=== PATIENT | female | born 1950 | race Caucasian/White ===

== ENCOUNTER 2018-09-07 13:21 | Inpatient (IN) | payer MEDICARE, BC ==
[2018-09-07 14:32] LABS: #Basophils 0.1 thou/uL (0.0-0.2); #Eosinphils 0.1 thou/uL (0.0-0.7); #Lymphocytes 2.6 thou/uL (1.20-3.40); #Monocytes 0.8 thou/uL (0.11-0.59); #Neutrophils 4.5 thou/uL (1.40-6.50); %Basophils 1.2 % (0.0-1.0); %Lymphocytes 32.2 % (21.0-51.0); %Monocytes 9.9 % (0.0-10.0); %Neutrophils 55.7 % (42.0-75.0); Hemoglobin 11.7 g/dL (12.0-16.0); Mean Corpuscular Hemoglobin 25.3 pg (27.0-31.0); Mean Corpuscular Volume 76.7 fL (78.0-98.0); Mean Platelet Volume 5.9 fL (7.4-10.4); Platelet Count 573 thou/uL (130-400); RBC Distribution Width 16.3 % (11.5-14.5); Red Blood Cell (RBC) Count 4.63 mill/uL (4.20-5.40); White Blood Cell (WBC) Count 8.1 thou/uL (4.8-10.8)
[2018-09-07 14:46] LABS: ALT (SGPT) 20 U/L (8-55); AST (SGOT) 18 U/L (5-34); Albumin 4.1 g/dL (3.4-4.8); Alkaline Phosphatase 47 U/L (40-150); Anion Gap 15 mmol/L (10-20); BUN (Urea Nitrogen) 21 mg/dL (9.8-20.1); Bilirubin, Total 0.3 mg/dL (0.2-1.2); Calc. Creatinine Clearance 0 mL/min (70-130); Carbon Dioxide 25 mmol/L (23-31); Chloride 101 mmol/L (98-107); Estimated GFR-MDRD 51; Glucose 72 mg/dL (80-115); Potassium 3.4 mmol/L (3.5-5.1); Protein, Total 7.1 g/dL (6.0-8.3); Sodium 138 mmol/L (136-145)
[2018-09-07 14:50] LABS: CKMB 0.9 ng/mL (0-6.6)
[2018-09-07 15:04] LABS: PTT 27.4 SEC (22.9-36.1); Prothrombin Time 13.7 SEC (12.0-14.7)
[2018-09-07] MEDS ORDERED: Morphine 4 MG/ML VIAL ONE (15:06)
[2018-09-07 15:15] LABS: Bilirubin Negative (Negative); Blood, Urine Negative (Negative); Clarity CLEAR (Clear); Glucose, Urine (Dipstick) Negative (Negative); Leukocyte Negative (Negative); Nitrite Negative (Negative); Protein, Urine (Dipstick) Negative (Neg-Trace); Specific Gravity, Urine 1.013 (1.002-1.036); Urobilinogen 0.2 mg/dL (0.2-1.0)
--- NOTE | 2018-09-07 16:03 | RAD ---
RADIOGRAPH CHEST 1 VIEW: 09/07/18 HISTORY: 68-year-old female with multiple falls, acute chest trauma from fall. FINDINGS: There are no air space densities, pulmonary edema, pneumothorax, or cardiomegaly. The lateral costop hrenic angles are sharp. IMPRESSION: No acute cardiopulmonary findings. scout [] POS: [facility]
--- NOTE | 2018-09-07 16:10 | CT ---
CT CERVICAL SPINE NONCONTRAST: 09/07/18 HISTORY: 68-year-old female status post acute cervical trauma. FINDINGS: There are no jumped or perched facets. There is no evidence of acute fracture. The vertebral body h eights are maintained. There is no prevertebral soft tissue swelling. IMPRESSION: No evidence of acute fracture or acute traumatic subluxation. scout [] POS: [place]
--- NOTE | 2018-09-07 16:23 | CT ---
CT THORACIC SPINE NONCONTRAST: 09/07/18 HISTORY: 68-year-old female with acute traumatic thoracic spine pain due to fall. FINDINGS: No vertebral body collapse. Multiple Schmorl's nodes throughout almost all levels in the mid and lowe r thoracic spine. No hematoma in the perivertebral space. IMPRESSION: 1. No compression fracture. 2. Multilevel moderate degenerative disc disease in the mid and lower thoracic spine. POS: [facility]
[2018-09-07] MEDS ORDERED: Dextrose 5% in Water 1,000 ML IV PRN (16:32)
[2018-09-07] MEDS ORDERED: Ondansetron ODT 4 MG TAB PO PRN (16:32)
[2018-09-07] MEDS ORDERED: Dextrose 50% Abboject 50 ML SYRINGE SLOW IVP PRN (16:32)
[2018-09-07] MEDS ORDERED: Ondansetron PF 4 MG/2 ML Vial IVP PRN (16:32)
[2018-09-07] MEDS ORDERED: hydrALAZINE 20 MG/ML VIAL SLOW IVP PRN ×2 (16:32→16:45)
[2018-09-07] MEDS ORDERED: Insulin Regular 300 UNITS/3 ML VIAL SC PRN (16:32)
--- NOTE | 2018-09-07 17:15 | CT ---
CT BRAIN NONCONTRAST: DATE: 09/07/18 at 2:32 p.m. HISTORY: 68-year-old female status post acute head trauma from fall. Dr. Araujo reported the subdural hematoma by telephone to Dr. Torres at 2:56 p.m. on 09/07/18. COMPARISON: None. FINDINGS: There is a small volume of acute subdural hematoma at midline, broadly abutting the left side of the anterior interhemispheric falx. There are small amounts of hemorrhage in the adjacent left parasagitt al frontal lobe abutting this subdural hematoma, either a small amount of petechial cortical parenchy mal hemorrhagic contusions, subarachnoid blood, or combination of both. This is probably a small amou nt of subarachnoid blood. There are at least moderate chronic ischemic white matter changes in the ce rebrum. No obstructive hydrocephalus, mass effect, midline shift, or calvarial fracture. IMPRESSION: 1. Acute, small midline subdural hematoma along the left side of the anterior interhemispheric f howard, and a small amount of hemorrhage, probably subarachnoid, to the adjacent left. 2. No mass effect. 3. Advanced chronic ischemic white matter changes due to microvascular atherosclerosis. ADRIANA Eli POS: [facility]
--- NOTE | 2018-09-07 17:37 | CT ---
CT LUMBAR SPINE NONCONTRAST: 09/07/18 HISTORY: 68-year-old female with acute, trauma, low back pain due to fall. FINDINGS: For the purposes of this report, the level with hypoplastic bilateral ribs will be designated as T12. There is anterior wedge compression deformity of L3 vertebral body with approximately 20 to 35% maxi mum loss of height anteriorly. No fracture lucency is visualized associated with this, and there is n o edema in the prevertebral space. Therefore, this is probably chronic. There is moderate central spi nal canal stenosis at L4-5 due to diffuse disc bulge, and possible nerve root impingement of bilatera l L5 nerve roots at that level. The rest of the lumbar vertebral body heights are preserved. There is a 0.7 cm calcified meningioma or osteoma at the left posterior aspect of the spinal canal at the L2 level. At L3-4, there is a prominent diffuse disc bulge plus superimposed inferiorly migrated central disc herniation. There is ligamentum flavum thickening at that level. There is severe central spinal canal stenosis and very severe thecal sac stenosis at that level, as a result of all of these factor s. IMPRESSION: 1. Mild compression fracture deformity of L3, probably old. 2. No definite acute compression fracture identified. 3. Severe central spinal canal stenosis at L3-4. 4. Moderate central spinal canal stenosis. POS: [place]
[2018-09-07] MEDS ORDERED: Potassium Chloride 40 MEQ in Sodium Chloride 0.9% 250 ML 250 ML IVPB SCH (18:00)
[2018-09-07] MEDS ORDERED: Acetaminophen 500 MG TAB ONE (18:39)
--- NOTE | 2018-09-07 18:46 | HP ---
ATTENDING SURGEON: Dr. Barrientos. HISTORY OF PRESENT ILLNESS: This is a 68-year-old female, who presented to the emergency room today status post fall yesterday morning around 8:00. The patient was walking with her sister whenever she stepped down off a step and fell. The sister states that she witnessed her falling. She fell backward, hit the back of her head. Denies any loss of consciousness. The patient has had multiple falls recently, one about a week ago, which she reports right-sided rib pain. The patient also had a fall approximately four months ago with reported loss of consciousness and lost control of her bowels at that time. She was also worked up at [facility] at that time, and it was felt that she possibly came hypotensive. The patient reports several home medications for depression and anxiety. The patient does not have a list currently and was able to give a few of the medications. The patient denies being lightheaded or dizzy before the fall. The sister did state whenever she helped her off the ground, she noticed that she was lifting to one side. States the patient has been under significant stress as another sister has been in the hospital, undergoing surgery. The patient did not sleep the night before. After falling and hitting her head, she was extremely sleepy, but denied any nausea or vomiting. Family member insisted that the patient to be taken to the emergency room to be evaluated due to the multiple falls. PAST MEDICAL HISTORY: Myocardial infarction 2 years ago with stent placement, hypertension, type 2 diabetes, depression, anxiety, COPD. SURGICAL HISTORY: Cardiac stent, carotid surgery. PSYCHIATRIC HISTORY: Includes depression and anxiety. SOCIAL HISTORY: Includes smokes half pack a day, the patient states she has cut down, used to smoke 1 to 2 packs for 40 years. Denies any drug use, denies any alcohol use, lives at home alone in a [id number] suite. MEDICATIONS: 1. Trazodone 100 mg. 2. Metformin 1000 mg. 3. Klonopin 0.5 mg. 4. Fenofibrate 150 mg. 5. Effexor 100 mg. 6. Symbicort. 7. Plavix, unknown dose. The patient takes for stent placement. ALLERGIES: SULFA. REVIEW OF SYSTEMS: GENERAL: No weight changes. Denies any fever or chills. Does report feeling tired. HEENT: Pain to the back of the head. Reports small hematoma. Denies any neck pain. Denies any nausea, vomiting, or visual changes. Denies any hearing loss or vertigo, although the patient did have a pressure in her ear yesterday that lasted about 15 minutes. Denies any sore throat. CARDIAC: Reports history of hypertension. Denies dyspnea on exertion. Denies orthopnea. Denies edema. Denies palpitations. The patient does complain of some right rib pain from fall one week ago. RESPIRATORY: Denies any shortness of breath. Reports productive cough. Reports history of COPD. GI: Denies nausea, vomiting, or diarrhea, does report constipation this morning. Denies any urinary frequency or dysuria. Denies abdominal pain. Does complain of some tenderness to the right hip area. MUSCULOSKELETAL: Denies any muscle weakness. Denies stiffness of the joints. Denies swelling. NEUROLOGIC: Denies loss of sensation. Denies numbness or tingling. PHYSICAL EXAMINATION: GENERAL: The patient is awake, alert, answering questions appropriately. GCS 15. VITAL SIGNS: Blood pressure 160/86, respirations 20, pulse 93, temperature 99.6, and 94% on room air. SKIN: There is no bruising noted. No clubbing noted. No rashes. HEENT: Head is atraumatic and normocephalic. Eyes, pupils are equal and slightly sluggish at 4 mm bilateral, there are no extraocular movements. Tympanic membranes are normal. Trachea is midline. The patient with full range of motion. HEART: Regular rate and rhythm. No murmurs or rubs. No pedal edema. RESPIRATORY: Chest is symmetrical with equal respirations, unlabored. The patient does have some expiratory wheezing. ABDOMEN: Soft, nontender, nondistended. Positive active bowel sounds. MUSCULOSKELETAL: Normal range of motion to all extremities. Positive distal pulses to all extremities. Mild tenderness to palpation to the left hip. No bruising noted. No shortening. Again, full range of motion. The patient is ambulatory. NEUROLOGIC: Cranial nerves are intact. Positive sensation and strength. Motor strength 5/5 in all extremities. LABORATORY DATA: WBC 8100, RBC 4.63, hemoglobin 11.7, hematocrit 35.5, platelets 575. PT 13.7, INR 1.0, APTT 27.4. Sodium 138, potassium 3.4, chloride 101, BUN 21, creatinine 1.06, estimated GFR 51, glucose 72, calcium 10.0, AST 13, ALT 20, alkaline phosphatase 47. CK-MB 0.9, troponin less than 0.010. Albumin 4.1, globulin 3.0, ratio 1.4. Urine is yellow, clear, negative for protein, negative for glucose, negative for ketones, negative for blood, negative for nitrites, negative for leukocyte esterase. DIAGNOSTICS: 1. CT brain, acute small subdural hematoma along the left side of the anterior interhemispheric falx. Small amount of hemorrhage, probably subarachnoid in the adjacent left frontal lobe. No mass effect. Advanced chronic ischemic white matter changes due to microvascular arthrosclerosis. 2. Chest x-ray, no acute cardiopulmonary findings. 3. Cervical spine CT, no evidence of acute fracture or acute traumatic subluxation. 4. Thoracic spine CT, no compression fracture. Multilevel moderate degenerative disk disease in the mid and lower thoracic spine. 5. Lumbar CT-spine, pending. 6. EKG interpretation, normal sinus rhythm at [address] elevation or T-wave abnormality and normal axis, Q-waves noted in leads III, V1, V2 and V3. IMPRESSION: 1. Ground level fall. 2. Acute small subdural hematoma. 3. Chest wall contusion. PLAN: We will admit the patient to [facility] with frequent neuro checks. Neurosurgery has been consulted and evaluated. We will place the patient on a diabetic diet. We will hold the patient's Plavix. We will order scheduled q.4 hour nebs. We will encourage incentive spirometer use. We will ensure the patient's head of bed is elevated at [address] the patient on a bowel regimen. The patient has been discussed with the attending surgeon. Job ID: [id number]
[2018-09-07 19:05] LABS: Magnesium 1.5 mg/dL (1.6-2.6); Phosphorus 3.5 mg/dL (2.3-4.7)
[2018-09-07] MEDS ORDERED: traMADol HCl 50 MG TAB ONE (19:32)
--- NOTE | 2018-09-07 20:40 | CON ---
DATE OF CONSULTATION: ATTENDING PHYSICIAN: Jonnathan Warner MD HISTORY OF PRESENT ILLNESS: The patient is a 68-year-old female with a past medical history of diabetes and hypertension, who presented to the emergency department after a mechanical fall. The patient reports she has had multiple falls over the past few months. Her most recent fall was yesterday when she believes she stepped off a curve. She does not believe that she had any LOC, but has some difficulty remembering the events. Family reports that just prior to the event, the patient had been sleeping in a chair while she was waiting for her sister, who has recently had surgery here for cervical myelopathy. Family reports that when she woke and got up of the chair, she seems somewhat off-balance and not acting herself. They did not witness the fall. The patient reports since the fall yesterday, she had some increased headache. Denies any nausea, vomiting, or dizziness. She was evaluated with CT of head on arrival and found to have a small left-sided parafalcine subdural hematoma, and also small amount of left-sided traumatic parasagittal subarachnoid hemorrhage. There is no mass effect or midline shift. The patient has a GCS of 15, neurologically intact. She is not taking any anticoagulants, and her PT and INR are normal here. PAST MEDICAL HISTORY: Hypertension and diabetes. PAST SURGICAL HISTORY: Coronary artery disease with 1 prior stent, prior neck surgery, but no history of fusion. SOCIAL HISTORY: The patient does not smoke, drink, or use any drugs. ALLERGIES: SHE IS ALLERGIC TO SULFA. REVIEW OF SYSTEMS: Per HPI. PHYSICAL EXAMINATION: VITAL SIGNS: Blood pressure is 160/86, respiration rate is 20, heart oxygen is 94% on room air, pulse is 93, and temperature is 99.6. CONSTITUTIONAL: Awake and alert, in no acute distress. GCS 15. HEENT: Head; she has a small area of soft tissue swelling over the mid occiput. Eyes; PERRLA. Extraocular movements intact. ENT, oral mucosa is pink, intact, and moist. She has a normal voice. NECK: Nontender to palpation. Free active range of motion. No meningismus or nuchal rigidity. RESPIRATORY: Symmetric chest expansion. No evidence of dyspnea. CARDIOVASCULAR: Regular rate and rhythm. MUSCULOSKELETAL: Free active range of motion of all extremities. No focal motor weakness. No reflex asymmetry. NEUROLOGIC: A and O x4. Normal speech. GCS 15. No focal neurologic deficits. ASSESSMENT: Mechanical fall and acute subdural hematoma. PLAN: This is a 68-year-old female with suffered several falls over the past few months. Her most recent fall was yesterday and CT of head shows an acute left parafalcine subdural hematoma and left parasagittal area of traumatic subarachnoid hemorrhage. The patient has been admitted to the Trauma Service, and we will follow closely with regard to her new intracranial hemorrhage. She will be have frequent neuro checks and head of the bed to be elevated to 30 degrees. Systolic blood pressure should be kept below 160. No anticoagulants should be given. In addition, we will evaluate her further with MRI of the cervical spine considering her frequent falls with the last few months. Discussed this plan with Dr. Warner, who is in agreement. Job ID: [id number]
[2018-09-07] MEDS: Acetaminophen 500 MG TAB PO SCH (20:48)
[2018-09-08] MEDS: traMADol HCl 50 MG TAB PO PRN ×3 (00:41→14:31)
[2018-09-08] MEDS: Acetaminophen 500 MG TAB PO SCH ×4 (00:42→18:13)
[2018-09-08 02:41] VITALS: BMI 27.6
[2018-09-08 04:59] LABS: #Basophils 0.1 thou/uL (0.0-0.2); #Eosinphils 0.2 thou/uL (0.0-0.7); #Lymphocytes 2.9 thou/uL (1.20-3.40); #Monocytes 0.6 thou/uL (0.11-0.59); #Neutrophils 3.9 thou/uL (1.40-6.50); %Basophils 1.6 % (0.0-1.0); %Lymphocytes 37.9 % (21.0-51.0); %Monocytes 8.2 % (0.0-10.0); %Neutrophils 50.3 % (42.0-75.0); Hemoglobin 10.4 g/dL (12.0-16.0); Mean Corpuscular HGB CONC 32.8 g/dL (32.0-36.0); Mean Corpuscular Hemoglobin 25.3 pg (27.0-31.0); Platelet Count 514 thou/uL (130-400); RBC Distribution Width 16.4 % (11.5-14.5); Red Blood Cell (RBC) Count 4.14 mill/uL (4.20-5.40); White Blood Cell (WBC) Count 7.8 thou/uL (4.8-10.8)
[2018-09-08 05:18] LABS: Anion Gap 17 mmol/L (10-20); BUN (Urea Nitrogen) 18 mg/dL (9.8-20.1); Calc. Creatinine Clearance 62 mL/min (70-130); Calcium 9.2 mg/dL (7.8-10.44); Carbon Dioxide 25 mmol/L (23-31); Chloride 99 mmol/L (98-107); Estimated GFR-MDRD 58; Glucose 96 mg/dL (80-115); Magnesium 1.4 mg/dL (1.6-2.6); Potassium 3.7 mmol/L (3.5-5.1); Sodium 137 mmol/L (136-145)
[2018-09-08] MEDS ORDERED: PROVENTIL INHALER 6.7 G (200 INHALATIONS) INH PRN (08:44)
[2018-09-08] MEDS ORDERED: Prevnar 13-Val Conj/PF 0.5 ML SYRINGE IM ONE (09:00)
[2018-09-08] MEDS ORDERED: Atorvastatin Calcium 40 MG TAB PO SCH (10:30)
[2018-09-08] MEDS ORDERED: Amlodipine 10 MG TAB PO SCH (10:30)
--- NOTE | 2018-09-08 10:38 | MRI ---
MRI CERVICAL SPINE NONCONTRAST DATE: 09/08/2018. TIME: 9:07 a.m. HISTORY: A 68-year-old female with multiple falls. FINDINGS: No Chiari-I malformation. Cervical spinal cord is normal in size and signal. No major subluxation. Vertebral body heights are maintained. Bilateral degenerative facet changes are mostly mild. Mild to moderate disk space narrowing at C3-4, C4-5, and C5-6. Schmorl's node at superior end plate of T1 without marrow edema. No major bone marrow signal abnormality. No major pathology of prevertebral space. Cervical spinal canal is diffusely small in caliber on a congenital basis due to developmentally shor t pedicles. This is exacerbated by cervical spondylosis as described below. C1-2: No high-grade central stenosis. C2-3: No high-grade central stenosis. No neural foraminal stenosis. C3-4: Small focal central disk herniation indents the ventral aspect the spinal cord. Moderate cent ral spinal canal stenosis. Bilateral small uncinate process osteophytes encroach upon the neural for loan, causing bilateral somewhat severe neural foraminal stenosis. C4-5: Slight degenerative retrolisthesis of C4 on C5 plus shallow, mild, broad-based disk-osteophyti c bar complex, plus mild ligamentum flavum thickening, result in moderate to severe central spinal ca nal stenosis. Small bilateral uncinate process osteophytes. Mild to moderate right neural foraminal stenosis. Moderate to severe left neural foraminal stenosis. C5-6: Shallow, mild broad-based disk-osteophytic bar complex encroaches upon the anterior aspect of the spinal canal, asymmetrically greater on the left side than right. Mild ligamentum flavum thicken ing. Moderate to severe central spinal canal stenosis. Bilateral moderate-sized uncinate process os teophytes result in moderate to severe right neural foraminal stenosis and mild to moderate left neur al foraminal stenosis. C6-7: Mild ligamentum flavum thickening. Minimal broad-based disk-osteophytic bar complex. Moderat e to severe bilateral neural foraminal stenosis due to moderate-sized uncinate process osteophytes, l eft worse than right. Moderate central spinal canal stenosis. C7-T1: No central stenosis. Mild bilateral neural foraminal stenosis. IMPRESSION: 1. Developmentally small caliber spinal canal exacerbated by mild to moderate cervical spondylosis. 2. This results in multilevel high-grade central spinal canal stenosis and multilevel high-grade roosevelt ral foraminal stenosis. 3. At C3-4, there is indentation of the spinal cord by small central focal disk herniation. POS: [facility]
--- NOTE | 2018-09-08 11:00 | PRG ---
DATE OF SERVICE: 09/08/2018 SURGEON: Jonnathan Warner MD. SUBJECTIVE: The patient was seen and examined. I agree with Doris Iniguez's evaluation on 09/07/2018. The patient is a 68-year-old woman who was here visiting her sister when she had a fall. She reports having had multiple falls progressively of late and also is complaining of diffuse spine pain. CT of the head reveals a small parafalcine subdural hematoma which is stable on followup CT scan. CT scan of the entire spine does not reveal any acute lesions. She does have chronic degenerative findings pronounced in the cervical and lumbar spines. MRI of the cervical spine reveals moderate degenerative findings and moderate cervical stenosis most pronounced at C4-C5. IMPRESSION AND PLAN: With regard to the head injury, no specific intervention is warranted. I will arrange four-week followup with a head CT. With regard to the possibility of chronic spinal issues contributing to her walking dysfunction, this do not appear to be severe in nature nor acute and I am recommending outpatient followup. We will get an MRI of the lumbar spine in the course of her outpatient workup prior to any final decision making on treatment. Job ID: [id number]
--- NOTE | 2018-09-08 15:52 | CT ---
PRELIMINARY REPORT/[facility]/EMERGENTY AFTER-HOURS PROCEDURE CT Head Without Contrast EXAM DATE/TIME: 09/08/2018 4:33 AM CLINICAL HISTORY: 68 years old, female; Condition or disease; Other: Sdh; Patient HX: F/u sdh TECHNIQUE: Axial computed tomography images of the head/brain without contrast. COMPARISON: CT Brain WO Con 09/07/2018 2:30 PM FINDINGS: Brain: Stable anterior parafalcine subdural hematoma and subarachnoid hemorrhage. Volume loss and chr onic small vessel ischemic change. No brain edema. Ventricles: Normal. No ventriculomegaly. Bones/joints: Normal. No acute fracture. Sinuses: Dependent mucus in the right maxillary sinus, stable compared to the prior study. Mastoid air cells: Normal as visualized. No mastoid effusion. Soft tissues: Normal. IMPRESSION: Stable anterior parafalcine subdural hematoma and subarachnoid hemorrhage. Thank you for allowing us to participate in the care of your patient. Dictated and Authenticated by: Alan Malone MD 09/08/2018 4:53 AM Central Time ([place] & [place]) FINAL REPORT CT BRAIN WITHOUT CONTRAST: I agree with the preliminary report given by Dr. Alan Malone of [facility]. POS: [facility]
--- NOTE | 2018-09-08 19:09 | PRG ---
DATE OF SERVICE: 09/08/2018 SUBJECTIVE: This is a 68-year-old female, who presented to the emergency room yesterday status post falling. The patient sustained a subdural hematoma after falling backwards and hitting her head. The patient also had several falls prior and reported chest pain and soreness to the right side. The patient had no overnight events. No changes in neuro status. Her only complaint was that she did not sleep as well as she because she did not have her home medication, trazodone and Klonopin. It was thought that the patient's medications could be the cause of her multiple falls here recently. This was discussed with the patient, and the patient verbalized understanding. OBJECTIVE: VITAL SIGNS: Temperature 97.8, pulse 82, respirations 20, SpO2 of 96% on room air, and blood pressure 154/86. GENERAL: The patient is awake, alert, sitting up in bed, in no distress. HEENT: Head is atraumatic and normocephalic. Pupils are equal and reactive at 3 mm bilateral. Trachea is midline. CARDIOVASCULAR: The patient with regular rate and rhythm. No murmurs or rubs. No pedal edema. RESPIRATORY: Equal chest rise and fall. Respirations equal and unlabored. Bilateral breath sounds are clear to auscultation. ABDOMEN: Soft, nontender, nondistended. MUSCULOSKELETAL: Normal range of motion to all extremities. No focal deficits. NEUROLOGIC: Cranial nerves intact. Positive sensation and strength. Motor strength 5/5 in all extremities. LABORATORY DATA: WBCs 7800, RBC 4.14, hemoglobin 10.4, hematocrit 31.8, MCV 77, MCHC 25.3, and platelet count 514. Sodium 137, potassium 3.4, chloride 99, carbon dioxide 25, anion gap 17, BUN 18, creatinine 0.95, estimated GFR 58, glucose 96, calcium 9.2, phosphorus 4.0, and magnesium 1.4. DIAGNOSTIC DATA: 1. Repeat head CT, stable anterior parafalcine subdural hematoma and subarachnoid hemorrhage. 2. Cervical spine MRI, developmentally small caliber spinal canal exacerbated by [id number] cervical spondylosis. At C3-4, there is an indentation of the spinal cord by small central focal disk herniation. IMPRESSION: 1. Ground level fall. 2. Acute small subdural hematoma and subarachnoid. 3. Chest wall contusion. PLAN: We will transfer the patient to the surgical ortho floor. We will continue less frequent neuro checks. Neurosurgery has cleared the patient and would like the patient to follow up in 4 weeks with them for head CT. Also recommends no Plavix for four weeks. Rehab consult has been placed as the patient has had multiple falls. The plan was discussed with the patient and her brother, and all agree that it is best the patient does remain in the hospital for physical therapy and rehab placement since she has been fallen. The plan was discussed with Dr. Barrientos and agrees with the plan. Job ID: [id number]
[2018-09-08] MEDS: Magnesium Oxide 400 MG TAB PO SCH (21:21)
[2018-09-09] MEDS: Acetaminophen 500 MG TAB PO SCH ×4 (01:17→11:25)
--- NOTE | 2018-09-09 07:29 | HP ---
ADDENDUM: This is an addendum to the H and P dictated by Emily Casper, Trauma Nurse practitioner. For full details, please see her H and P. I have confirmed the details of her H and P with the patient. In short, Ms. Felipe is a 68-year-old woman, who slipped on a step and fell backwards hitting her head. She was not knocked out and does remember the incident. She feels like her weight of her upper body just got ahead of her legs and she fell for that reason. She has had multiple falls recently including 1 week ago when she tripped and 1 couple of weeks before that where she just fell for no reason that she could identify. This morning, she is feeling fine, but not quite herself. She cannot really explain how she feels different; although, she states that she was not able to sleep last night since she did get her sleeping pill and she thinks that may have a lot to do with that. She is alert and oriented, and does not have any focal complaints. When she fell a week ago, she hit her right chest and has had pain and clicking in her right chest when she takes deep breath ever since. She also states that she cracked some ribs on the left in a previous fall. PAST MEDICAL HISTORY: NE with stent, hypertension, diabetes, COPD, depression, and anxiety. PAST SURGICAL HISTORY: Carotid surgery and cardiac stenting. SOCIAL HISTORY: The patient continues to smoke, although, she is cutting back. She does not use any drugs or alcohol. MEDICATIONS: She is on multiple medications includin. Trazodone. 2. Metformin. 3. Klonopin. 4. Fenofibrate. 5. Effexor. 6. Symbicort. 7. Plavix. The patient states that recently she changed pharmacy and was told that some of her medications were actually duplicate. ALLERGIES: SHE REPORTS AN ALLERGY TO SULFA. REVIEW OF SYSTEMS: Negative except per HPI. PHYSICAL EXAMINATION: Head-to-toe physical examination was personally performed. HEENT: She has some swelling in her posterior scalp. Pupils are equal and reactive. Extraocular movements are intact. No diplopia. Facial movements are symmetric. NECK: Supple, although, sore. No lymphadenopathy or thyroid nodules are noted. HEART: Regular in its rate and rhythm without murmurs, rubs, or gallops. LUNGS: Clear to auscultation bilaterally. She does have crepitance near the sternal costal junction on the right near the fourth or fifth rib with compression, this is painful for her. No other crepitance and no subcu crepitance. ABDOMEN: Soft, nontender, and nondistended. No palpable masses or hernias. EXTREMITIES: Warm and well perfused without edema. NEUROLOGIC: No focal deficits. PSYCHIATRIC: Alert, oriented, and appropriate. LABORATORY DATA: Labs this morning are unremarkable, though her hematocrit is somewhat low at 31. All of her images are reviewed. Chest x-ray was unremarkable; although, anterior rib fractures are not well evaluated on portable chest x-rays. She has lumbar stenosis and an old compression fracture, but no acute fractures on CT of cervical, thoracic, and lumbar spine. The official read on her head CT from this morning is still pending, but made the small central subdural appear stable. ASSESSMENT: Subdural hematoma, status post fall. This appears stable to me on repeat CT, but it is concerning that the patient has been falling so frequently. She is on multiple medications and had been taking some duplicate, so I recommended that she take all of the medications that she is taking to her primary care doctor and review these with them as they may be contributing. She feels like her balance is off, so Neurology consult or referral to the fall prevention program at the [facility] would also be prudent. This can all be done as an outpatient. I am awaiting the final radiology read and Neurosurgery recommendations on her, but there are no acute issues. Job ID: [id number]
[2018-09-09] MEDS: Magnesium Oxide 400 MG TAB PO SCH (08:19)
[2018-09-09] MEDS ORDERED: POTASSIUM CHLORIDE IVPB SCH (08:45)
[2018-09-09] MEDS ORDERED: MAGNESIUM SULFATE IVPB SCH (08:45)
[2018-09-09] MEDS ORDERED: SODIUM CHLORIDE 0.9% IVPB SCH (08:45)
[2018-09-09] MEDS ORDERED: Amlodipine 10 MG TAB PO SCH (09:00)
[2018-09-09] MEDS ORDERED: Atorvastatin Calcium 40 MG TAB PO SCH (09:00)
[2018-09-09 11:27] VITALS: TEMP 98.7
[2018-09-09] MEDS ORDERED: clonazePAM 0.5 MG TAB PO PRN (12:01)
[2018-09-09] MEDS ORDERED: Potassium Chloride 20 MEQ TAB PO SCH (12:15)
[2018-09-09] MEDS ORDERED: Triamterene/Hydrochlorothiazide 37.5 mg/25 mg Tablet PO SCH ×2 (12:15→12:30)
[2018-09-09] MEDS ORDERED: Non-Formulary Item 1 EACH (Losartan Potassium [Losartan Potassium] 100 MG) PO SCH (12:30)
[2018-09-09] MEDS ORDERED: Losartan 25 MG TAB PO SCH (12:30)
[2018-09-09] MEDS: traMADol HCl 50 MG TAB PO PRN (13:34)
[2018-09-09 14:19] VITALS: BP 154/86
[2018-09-09] MEDS ORDERED: traZODone HCl 50 MG TAB PO SCH (21:00)
--- NOTE | 2018-09-10 07:02 | DIS ---
DATE OF ADMISSION: 09/07/2018 DATE OF DISCHARGE: 09/09/2018 ADMISSION DIAGNOSES: 1. Status post fall from standing. 2. Subdural hematoma. 3. Chest wall contusion. DISCHARGE DIAGNOSES: 1. Status post mechanical fall from standing. 2. Subdural hematoma. 3. Chest wall contusion. CONSULTING PHYSICIANS: Dr. Reese Warner, Neurosurgery. PROCEDURES: None. HOSPITAL COURSE: Ms. Felipe presented to the hospital after falling off a curb in the hospital parking lot and striking her head with no loss of consciousness. She does take Plavix every day. She was seen and evaluated in the emergency department and received a chest x-ray as well as CT of the head, C-spine, T-spine, and L- spine, which determined that she had a subdural hematoma. Neurosurgery was contacted, who recommended a followup CT scan. A followup CT scan demonstrated no worsening of the subdural hemorrhage. At that time, the patient had no focal neurological deficits. Plavix was held, and the patient was admitted to the Trauma Department for further rehabilitation. She was seen by Physical and Occupational Therapy. She also received neurological assessments in the ICU and then furthermore when she was transferred to the floor. She did not have any changes in her mentation throughout her visit, and her GCS remained at 15. At the date of discharge, it was determined that the patient should have her Plavix held per their recommendation of Dr. Warner for 4 weeks with a followup CT head. Plavix was originally prescribed by her paper wood cutter, Dr. Ariel Hernández, who is a physician in [place]. The Trauma Team did contact the physician and left a message for him about holding the Plavix and was instructed to call the Trauma Team if he had any questions or if he would like the Plavix to be restarted earlier than 4 weeks. The patient was also advised to see her primary care physician within 1 week for adjustment of medications as it is unclear if they attributed her fall. Before discharge, her trazodone was also decreased to 75 mg at bedtime. At the time of discharge, the patient's pain was well controlled. She was tolerating a diabetic diet, and she was urinating without difficulties. DISCHARGE DISPOSITION: Acute rehab. DISCHARGE CONDITION: Satisfactory. PHYSICAL EXAMINATION: VITAL SIGNS: Temperature 98.7, pulse 80, respirations 14 on room air, and blood pressure 154/86. GENERAL: Well-appearing elderly female, ambulating with minimal assistance. Alert and awake. NEUROLOGIC: GCS is 15. No focal neurological deficits. Pupils equal, round, reactive to light. Alert and oriented x3. CARDIOVASCULAR: Regular rate and rhythm. No murmurs, gallops, or rubs. PULMONARY: Equal chest rise and fall. Clear breath sounds bilaterally. No signs of acute distress. ABDOMEN: Soft, nontender, and nondistended. EXTREMITIES: Moves all extremities to command. 2+ pulses in all extremities. No edema noted. DISCHARGE INSTRUCTIONS: She was discharged to an acute rehab facility with activityas tolerated, diabetic diet, with instructions to hold the Plavix for 4 weeks and to follow up with Neurosurgery, Dr. Warner. Her paper wood cutter was made aware. She is to continue incentive spirometry. DISCHARGE MEDICATIONS: Include: 1. Tylenol. 2. Tramadol. 3. Trazodone. 4. Metformin. 5. amlodipine. 6. . 7. Pantoprazole. 8. Fenofibrate. 9. Metoprolol. 10. Albuterol. 11. Klonopin. 12. Lipitor. 13. Omeprazole. 14. Isosorbide mononitrate. 15. Triamterene/hydrochlorothiazide. 16. Losartan. 17. Potassium. 18. Venlafaxine. FOLLOWUP APPOINTMENTS: She is to follow up with Dr. Warner, Neurosurgery in 4 weeks and complete a head CT before her appointment. This is merely a summary of the patient's hospitalization. For further details, please see her medical record in its full entirety. Job ID: [id number] MTDD
[2018-09-10] MEDS ORDERED: Fenofibrate Nanocrystallized 145 MG TAB PO SCH (09:00)
[2018-09-10] MEDS ORDERED: Triamterene/Hydrochlorothiazide 37.5 mg/25 mg Tablet PO SCH (09:00)
[2018-09-10] MEDS ORDERED: Losartan 25 MG TAB PO SCH (09:00)
== END 2018-09-09 14:20 | DRG 87 ==
LOC: ERS 13:21 → ERHOLD 15:30 → IMCU/EMU 16:12 → SURG A 09-08 16:11
PROVIDERS: ADMIT Surgery; ATTEND Surgery
DX: S06.5X0A Traumatic subdural hemorrhage without loss of consciousness, initial encounter (principal); R40.2412 Glasgow coma scale score 13-15, at arrival to emergency department; E11.9 Type 2 diabetes mellitus without complications; I10 Essential (primary) hypertension; F32.9 Major depressive disorder, single episode, unspecified; F41.9 Anxiety disorder, unspecified; J44.9 Chronic obstructive pulmonary disease, unspecified; S20.219A Contusion of unspecified front wall of thorax, initial encounter; F17.210 Nicotine dependence, cigarettes, uncomplicated; I25.2 Old myocardial infarction; Z98.61 Coronary angioplasty status; Z79.84 Long term (current) use of oral hypoglycemic drugs; Z98.890 Other specified postprocedural states; Z79.899 Other long term (current) drug therapy; W10.1XXA Fall (on)(from) sidewalk curb, initial encounter; Y92.481 Parking lot as the place of occurrence of the external cause
CPT/HCPCS: 36415; 36416; 70450; 71045; 72125; 72128; 72131; 72141; 80048; 80053; 81003; 82553; 83735; 84100; 84484; 85025; 85610; 85730; 93005; 94640; 96365; 96375; J2270; J3475; J3480; J7050; J7620

== ENCOUNTER 2018-10-08 10:02 | Outpatient (CLI) | payer MEDICARE, BC ==
--- NOTE | 2018-10-08 11:19 | CT ---
CT HEAD WITHOUT CONTRAST: Date: 10/08/18 COMPARISON: 09/08/18. HISTORY: Reevaluate subdural hematoma noted on prior imaging. TECHNIQUE: Axial CT imaging at 4.5 mm intervals from vertex through skull base without contrast. FINDINGS: There is atherosclerotic calcification of the cavernous carotid arteries and the distal right vertebr al artery. The previous study demonstrated extra-axial hemorrhage composes of subdural and subarachnoid blood in the left frontal region medially. On this examination, the previously noted intracranial hemorrhage is no longer present. No new hemorrhage is identified on this exam. There is mild diffuse cerebral vo lume loss. There is periventricular and deep white matter hypodensity, evidence of small vessel disea se. No acute osseous abnormality. IMPRESSION: Interval resolution of previously noted intracranial hemorrhage. POS: [facility]
--- NOTE | 2018-10-08 12:46 | MRI ---
MRI LUMBAR SPINE WITHOUT CONTRAST: History: Back pain, bilateral hip pain. Complaining of falls. Technique: Multiplanar, multisequence MRI images were obtained were obtained of the lumbar spine with out contrast. FINDINGS: T12-L1: Disc desiccation seen. There is a mild broad based disc bulge with bilateral facet hypertroph y seen. No evidence of significant central or neural foraminal narrowing is seen. L 1-2: Unremarkable L2-3: There is irregularity involving the superior endplate compatible with a likely Schmorl's node. Mild old height loss is seen in the superior endplate of L3 compatible with a likely old compression fracture. No significant degree of central stenosis is seen. The neural foramen are patent. L3-4: There is some disc desiccation seen. There is a broad based disc bulge with bilateral facet and ligamentum flavum hypertrophy resulting in a moderate degree of central and lateral recess stenosis. There is mild to moderate bilateral neural foraminal narrowing due to facet hypertrophy. L4-5: Disc desiccation is seen. There is a broad base disc bulge with bilateral facet and ligamentum flavum hypertrophy resulting in mild to moderate central and lateral recess stenosis. Mild bilateral neural foraminal narrowing is seen. L5-S1: Disc desiccation is seen. There is bilateral facet hypertrophy seen. IMPRESSION: 1. Multilevel broad based disc bulges and facet hypertrophy. There is an old superior endplate L3 com pression fracture with no evidence of acute marrow signal changes. POS: [facility]
== END 2018-10-08 10:03 | disposition home or self-care (01) ==
LOC: TBSIIMAG 10:02
PROVIDERS: ATTEND Neurological Surgery
DX: S06.5X9A Traumatic subdural hemorrhage with loss of consciousness of unspecified duration, initial encounter (principal); M48.061 Spinal stenosis, lumbar region without neurogenic claudication; M51.86 Other intervertebral disc disorders, lumbar region
CPT/HCPCS: 70450; 72148

== ENCOUNTER 2021-12-17 20:33 | Inpatient (IN) | payer MEDICARE, BC ==
[2021-12-17 20:48] LABS: #Basophils 0.1 thou/uL (0.0-0.2); #Eosinphils 0.2 thou/uL (0.0-0.7); #Lymphocytes 2.2 thou/uL (1.20-3.40); #Monocytes 0.6 thou/uL (0.11-0.59); #Neutrophils 4.4 thou/uL (1.40-6.50); %Basophils 0.9 % (0.0-1.0); %Eosinophils 2.6 % (0.0-10.0); %Lymphocytes 29.4 % (21.0-51.0); %Monocytes 8.4 % (0.0-10.0); %Neutrophils 58.8 % (42.0-75.0); Hemoglobin 10.7 g/dL (12.0-16.0); Mean Corpuscular HGB CONC 33.6 g/dL (32.0-36.0); Mean Corpuscular Volume 83.5 fL (78.0-98.0); Mean Platelet Volume 6.2 fL (7.4-10.4); Platelet Count 289 thou/uL (130-400); RBC Distribution Width 16.3 % (11.5-14.5); Red Blood Cell (RBC) Count 3.83 mill/uL (4.20-5.40); White Blood Cell (WBC) Count 7.6 thou/uL (4.8-10.8)
[2021-12-17] MEDS ORDERED: Aspirin 325 MG TAB ONE (20:53)
[2021-12-17 20:59] LABS: INR-International Normal Ratio 1.1; Prothrombin Time 14.2 sec (12.0-14.7)
[2021-12-17 21:00] LABS: PTT 30.7 sec (22.9-36.1)
[2021-12-17 21:01] LABS: Magnesium 1.8 mg/dL (1.6-2.6)
[2021-12-17 21:03] LABS: ALT (SGPT) 27 U/L (8-55); AST (SGOT) 41 U/L (5-34); Albumin 4.2 g/dL (3.4-4.8); Alkaline Phosphatase 62 U/L (40-110); Anion Gap 16 mmol/L (10-20); BUN (Urea Nitrogen) 35 mg/dL (9.8-20.1); Bilirubin, Total 0.5 mg/dL (0.2-1.2); Calc. Creatinine Clearance 0 mL/min (70-130); Calcium 8.5 mg/dL (7.8-10.44); Carbon Dioxide 20 mmol/L (23-31); Chloride 100 mmol/L (98-107); Globulin 2.3 g/dL (2.4-3.5); Glucose 95 mg/dL (83-110); Potassium 3.3 mmol/L (3.5-5.1); Protein, Total 6.5 g/dL (5.8-8.1); Sodium 133 mmol/L (136-145)
[2021-12-17 21:08] LABS: Acetaminophen Less than 10.0 mcg/mL (10.0-30.0); Alcohol Less than 10 mg/dL (Less than 10); Salicylate Less than 8.0 mg/dL (15.0-30.0)
[2021-12-17 21:44] LABS: Bacteria/HPF 4+ HPF (None Seen); Bilirubin Negative (Negative); Blood, Urine Negative (Negative); Clarity Clear (Clear); Glucose, Urine (Dipstick) Normal (Negative); Ketone, Urine Negative (Negative); Leukocyte 250 Leu/uL (Negative); Nitrite 2+ (Negative); Protein, Urine (Dipstick) Negative (Neg-Trace); RBC/HPF 0-3 HPF (0-3); Specific Gravity, Urine 1.009 (1.002-1.036); Squamous Epithelial 0-3 HPF (0-3); Urobilinogen Normal mg/dL (Less than 2); WBC/HPF 21-50 HPF (0-3); pH, Urine 5.5 (5.0-9.0)
[2021-12-17 21:51] LABS: Amphetamine Not Detected (NotDetected); Barbiturates Screen Not Detected (NotDetected); Benzodiazepine Screen Not Detected (NotDetected); Cocaine Metabolite Screen Not Detected (NotDetected); Methadone Not Detected (NotDetected); Methamphetamine Not Detected (NotDetected); Opiate Screen Not Detected (NotDetected); Oxycodone Screen Not Detected (NotDetected); Phencyclidine (PCP) Not Detected (NotDetected); THC/Cannabinoid Screen Not Detected (NotDetected); Tricyclic Screen Not Detected (NotDetected)
[2021-12-17] MEDS ORDERED: Acetaminophen 500 MG TAB ONE (22:11)
[2021-12-17] MEDS ORDERED: HYDROcodone/Acetaminophen 5/325 mg Tablet PO PRN (22:37)
[2021-12-17] MEDS ORDERED: Ondansetron PF 4 MG/2 ML Vial IVP PRN (22:37)
[2021-12-17] MEDS ORDERED: hydrALAZINE 20 MG/ML VIAL SLOW IVP PRN (22:42)
[2021-12-17] MEDS ORDERED: Morphine 2 MG/ML VIAL SLOW IVP PRN (22:42)
[2021-12-17] MEDS ORDERED: Lorazepam 2 MG/ML VIAL SLOW IVP PRN (22:45)
[2021-12-17] MEDS ORDERED: Potassium Bicarbonate/Cit Ac 25 MEQ TAB PO SCH (23:00)
[2021-12-17 23:19] LABS: Magnesium 1.6 mg/dL (1.6-2.6)
[2021-12-18] MEDS ORDERED: cefTRIAXone\\ROCEPHIN 1 GM VIAL ONE (00:03)
[2021-12-18 01:45] VITALS: BMI 29.1
[2021-12-18 02:50] LABS: ALT (SGPT) 23 U/L (8-55); AST (SGOT) 33 U/L (5-34); Albumin 3.8 g/dL (3.4-4.8); Alkaline Phosphatase 56 U/L (40-110); Anion Gap 15 mmol/L (10-20); BUN (Urea Nitrogen) 31 mg/dL (9.8-20.1); Bilirubin, Total 0.3 mg/dL (0.2-1.2); Calc. Creatinine Clearance 33 mL/min (70-130); Calcium 8.3 mg/dL (7.8-10.44); Carbon Dioxide 20 mmol/L (23-31); Chloride 104 mmol/L (98-107); Globulin 2.5 g/dL (2.4-3.5); Glucose 148 mg/dL (83-110); Potassium 3.4 mmol/L (3.5-5.1); Protein, Total 6.3 g/dL (5.8-8.1); Sodium 136 mmol/L (136-145)
[2021-12-18] MEDS ORDERED: Cefepime 1 GM in Sodium Chloride 0.9% 100 ML IVPB SCH (03:00)
[2021-12-18] MEDS: Nicotine 21 MG PATCH TD SCH ×2 (04:56→20:52)
[2021-12-18] MEDS: NS 0.9% w/ 20 MEQ KCL 1,000 ML/1,000 ML BAG IV SCH ×2 (04:56→22:29)
[2021-12-18] MEDS ORDERED: Magnesium 2 GM/50 ML(in water) 2 GM in Premix Bag 1 BAG IVPB SCH (07:15)
[2021-12-18 07:52] LABS: Creatinine, Urine 65.66 mg/dL (47-110)
[2021-12-18] MEDS ORDERED: traZODone HCl 150 MG TAB PO SCH ×2 (09:00→21:00)
[2021-12-18] MEDS ORDERED: Enoxaparin Sodium 30 MG/0.3 ML SYRINGE SC SCH (09:00)
[2021-12-18] MEDS: Atorvastatin Calcium 40 MG TAB PO SCH (10:00)
[2021-12-18] MEDS: Venlafaxine HCl XR 150 MG CAP PO SCH (10:00)
[2021-12-18] MEDS: Aspirin 81 mg Enteric Coated Tablet PO SCH (10:00)
[2021-12-18] MEDS: Clopidogrel Bisulfate 75 MG TAB PO SCH (10:00)
[2021-12-18] MEDS ORDERED: Lorazepam 0.5 MG TAB PO PRN (10:38)
[2021-12-18] MEDS: Aspirin 300 MG Suppository PR SCH (10:40)
[2021-12-18] MEDS: HumaLOG 300 UNITS/3 ML VIAL SC PRN (11:18)
[2021-12-18] MEDS: Sodium Bicarbonate Tab 325 MG TAB PO SCH ×2 (15:40→20:52)
[2021-12-18 15:59] LABS: SARS-CoV-2 PCR by NAA Not Detected (NotDetected)
[2021-12-18] MEDS: clonazePAM 0.5 MG TAB PO SCH (20:53)
[2021-12-19] MEDS: NS 0.9% w/ 20 MEQ KCL 1,000 ML/1,000 ML BAG IV SCH (01:34)
[2021-12-19] MEDS: cefTRIAXone\\ROCEPHIN 1 GM in Sodium Chloride 0.9% 100 ML IVPB SCH (01:48)
[2021-12-19 05:07] LABS: Mean Corpuscular HGB CONC 33.5 g/dL (32.0-36.0); Mean Corpuscular Hemoglobin 28.4 pg (27.0-31.0); Mean Corpuscular Volume 84.6 fL (78.0-98.0); Mean Platelet Volume 6.4 fL (7.4-10.4); Platelet Count 294 thou/uL (130-400); RBC Distribution Width 16.2 % (11.5-14.5); Red Blood Cell (RBC) Count 3.86 mill/uL (4.20-5.40); White Blood Cell (WBC) Count 6.4 thou/uL (4.8-10.8)
[2021-12-19 05:16] LABS: Anion Gap 15 mmol/L (10-20); BUN (Urea Nitrogen) 17 mg/dL (9.8-20.1); Calc. Creatinine Clearance 60 mL/min (70-130); Calcium 8.6 mg/dL (7.8-10.44); Carbon Dioxide 22 mmol/L (23-31); Chloride 108 mmol/L (98-107); Glucose 108 mg/dL (83-110); Potassium 3.5 mmol/L (3.5-5.1); Sodium 141 mmol/L (136-145)
[2021-12-19 05:18] LABS: Iron 31 ug/dL (50-170); Iron Binding Capacity, Total 341 mcg/dL (265-497)
[2021-12-19 08:42] LABS: Cardiac Risk 4.9 (Less than 4.5)
[2021-12-19] MEDS: Acetaminophen 325 MG TAB PO PRN (09:08)
[2021-12-19] MEDS: Venlafaxine HCl XR 150 MG CAP PO SCH (09:10)
[2021-12-19] MEDS: Aspirin 81 mg Enteric Coated Tablet PO SCH (09:11)
[2021-12-19] MEDS: Atorvastatin Calcium 40 MG TAB PO SCH (09:11)
[2021-12-19] MEDS: Clopidogrel Bisulfate 75 MG TAB PO SCH (09:11)
[2021-12-19] MEDS: Sodium Bicarbonate Tab 325 MG TAB PO SCH ×3 (09:11→20:28)
[2021-12-19] MEDS: Aspirin 300 MG Suppository PR SCH (09:11)
[2021-12-19] MEDS: Enoxaparin Sodium 40 MG/0.4 ML SYRINGE SC SCH (09:12)
[2021-12-19] MEDS ORDERED: Potassium Chloride 20 MEQ TAB PO SCH (10:00)
[2021-12-19] MEDS ORDERED: Amlodipine 5 MG TAB PO SCH (11:30)
[2021-12-19] MEDS ORDERED: Amlodipine 10 MG TAB PO SCH (11:30)
[2021-12-19] MEDS: HYDROcodone/Acetaminophen 5/325 mg Tablet PO PRN ×2 (12:03→20:26)
[2021-12-19] MEDS: HumaLOG 300 UNITS/3 ML VIAL SC PRN (12:08)
[2021-12-19] MEDS: clonazePAM 0.5 MG TAB PO SCH (20:24)
[2021-12-19] MEDS: traZODone HCl 50 MG TAB PO SCH (20:25)
[2021-12-19] MEDS: Nicotine 21 MG PATCH TD SCH (20:29)
[2021-12-20] MEDS: cefTRIAXone\\ROCEPHIN 1 GM in Sodium Chloride 0.9% 100 ML IVPB SCH (01:18)
[2021-12-20 05:33] LABS: Anion Gap 13 mmol/L (10-20); BUN (Urea Nitrogen) 12 mg/dL (9.8-20.1); Calc. Creatinine Clearance 70 mL/min (70-130); Calcium 8.7 mg/dL (7.8-10.44); Carbon Dioxide 27 mmol/L (23-31); Chloride 105 mmol/L (98-107); Glucose 99 mg/dL (83-110); Potassium 3.5 mmol/L (3.5-5.1); Sodium 141 mmol/L (136-145)
[2021-12-20] MEDS ORDERED: Amlodipine 5 MG TAB PO SCH ×2 (09:00)
[2021-12-20] MEDS ORDERED: Amlodipine 10 MG TAB PO SCH ×2 (09:00)
[2021-12-20] MEDS: Enoxaparin Sodium 40 MG/0.4 ML SYRINGE SC SCH (09:44)
[2021-12-20] MEDS: Aspirin 300 MG Suppository PR SCH (09:45)
[2021-12-20] MEDS: Aspirin 81 mg Enteric Coated Tablet PO SCH (09:45)
[2021-12-20] MEDS: Potassium Chloride 20 MEQ TAB PO SCH (09:46)
[2021-12-20] MEDS: Atorvastatin Calcium 40 MG TAB PO SCH (09:46)
[2021-12-20] MEDS: Venlafaxine HCl XR 150 MG CAP PO SCH (09:46)
[2021-12-20] MEDS: Sodium Bicarbonate Tab 325 MG TAB PO SCH (09:46)
[2021-12-20] MEDS: Clopidogrel Bisulfate 75 MG TAB PO SCH (09:46)
[2021-12-20] MEDS: Amlodipine 5 MG TAB PO SCH (09:47)
[2021-12-20] MEDS: Acetaminophen 325 MG TAB PO PRN (10:04)
[2021-12-20] MEDS: HumaLOG 300 UNITS/3 ML VIAL SC PRN (11:31)
[2021-12-20] MEDS: HYDROcodone/Acetaminophen 5/325 mg Tablet PO PRN ×2 (11:38→19:39)
[2021-12-20] MEDS: clonazePAM 0.5 MG TAB PO SCH (19:41)
[2021-12-20] MEDS: traZODone HCl 50 MG TAB PO SCH (19:42)
[2021-12-20] MEDS: Nicotine 21 MG PATCH TD SCH (19:42)
[2021-12-21] MEDS: cefTRIAXone\\ROCEPHIN 1 GM in Sodium Chloride 0.9% 100 ML IVPB SCH (00:13)
[2021-12-21 05:47] LABS: Anion Gap 13 mmol/L (10-20); BUN (Urea Nitrogen) 9 mg/dL (9.8-20.1); Calc. Creatinine Clearance 81 mL/min (70-130); Calcium 8.9 mg/dL (7.8-10.44); Carbon Dioxide 27 mmol/L (23-31); Chloride 102 mmol/L (98-107); Glucose 99 mg/dL (83-110); Potassium 3.4 mmol/L (3.5-5.1); Sodium 139 mmol/L (136-145)
[2021-12-21] MEDS: Enoxaparin Sodium 40 MG/0.4 ML SYRINGE SC SCH (08:53)
[2021-12-21] MEDS: Cyanocobalamin (Vitamin B-12) 1,000 MCG TAB PO SCH (08:55)
[2021-12-21] MEDS: Ferrous Sulfate 325 MG TAB PO SCH (08:55)
[2021-12-21] MEDS: Potassium Chloride 20 MEQ TAB PO SCH (08:55)
[2021-12-21] MEDS: Venlafaxine HCl XR 150 MG CAP PO SCH (08:55)
[2021-12-21] MEDS: Amlodipine 5 MG TAB PO SCH (08:56)
[2021-12-21] MEDS: Clopidogrel Bisulfate 75 MG TAB PO SCH (08:56)
[2021-12-21] MEDS: Aspirin 81 mg Enteric Coated Tablet PO SCH (08:56)
[2021-12-21] MEDS: Atorvastatin Calcium 40 MG TAB PO SCH ×2 (08:56→10:44)
[2021-12-21] MEDS: Aspirin 300 MG Suppository PR SCH (08:58)
[2021-12-21] MEDS: HYDROcodone/Acetaminophen 5/325 mg Tablet PO PRN (15:44)
[2021-12-21] MEDS ORDERED: Artificial Tear Sol 15 ML BOT EA EYE PRN (16:22)
[2021-12-21] MEDS ORDERED: Sodium Chloride 0.65% Nasal 44 ML BOT EA NARE PRN (16:22)
[2021-12-21] MEDS ORDERED: Benzonatate 100 MG CAP PO PRN (16:22)
[2021-12-21] MEDS ORDERED: Labetalol HCl 100 MG/20 ML VIAL SLOW IVP PRN (16:22)
[2021-12-21] MEDS ORDERED: Moisturizing Cream (Eucerin) 113 GM JAR TOP PRN (16:22)
[2021-12-21] MEDS ORDERED: hydrALAZINE 20 MG/ML VIAL SLOW IVP PRN (16:24)
[2021-12-21] MEDS ORDERED: Lidocaine 5% Patch TD SCH (17:00)
[2021-12-21] MEDS ORDERED: Atorvastatin Calcium 40 MG TAB PO SCH (21:00)
[2021-12-21] MEDS: Nicotine 21 MG PATCH TD SCH (21:15)
[2021-12-21] MEDS: clonazePAM 0.5 MG TAB PO SCH (21:16)
[2021-12-21] MEDS: traZODone HCl 50 MG TAB PO SCH (21:17)
[2021-12-21] MEDS ORDERED: clonazePAM 0.5 MG TAB PO SCH (23:15)
[2021-12-22] MEDS: cefTRIAXone\\ROCEPHIN 1 GM in Sodium Chloride 0.9% 100 ML IVPB SCH (01:34)
[2021-12-22] MEDS ORDERED: Transdermal Patch Removal TOP SCH (05:00)
[2021-12-22 06:12] LABS: Anion Gap 13 mmol/L (10-20); BUN (Urea Nitrogen) 9 mg/dL (9.8-20.1); Calc. Creatinine Clearance 81 mL/min (70-130); Calcium 9.3 mg/dL (7.8-10.44); Carbon Dioxide 27 mmol/L (23-31); Chloride 102 mmol/L (98-107); Glucose 98 mg/dL (83-110); Potassium 3.9 mmol/L (3.5-5.1); Sodium 138 mmol/L (136-145)
[2021-12-22] MEDS ORDERED: Fluticasone Propionate Nasal Spray 16 gm Bottle NASAL SCH (09:00)
[2021-12-22] MEDS: Enoxaparin Sodium 40 MG/0.4 ML SYRINGE SC SCH (09:29)
[2021-12-22] MEDS: Amlodipine 5 MG TAB PO SCH (09:30)
[2021-12-22] MEDS: Cyanocobalamin (Vitamin B-12) 1,000 MCG TAB PO SCH (09:31)
[2021-12-22] MEDS: Venlafaxine HCl XR 150 MG CAP PO SCH (09:31)
[2021-12-22] MEDS: Potassium Chloride 20 MEQ TAB PO SCH (09:31)
[2021-12-22] MEDS: Aspirin 81 mg Enteric Coated Tablet PO SCH (09:32)
[2021-12-22] MEDS: Ferrous Sulfate 325 MG TAB PO SCH (09:32)
[2021-12-22] MEDS: Clopidogrel Bisulfate 75 MG TAB PO SCH (09:32)
[2021-12-22] MEDS: Aspirin 300 MG Suppository PR SCH (09:34)
[2021-12-22 11:53] VITALS: BP 149/82; TEMP 98
== END 2021-12-22 14:10 | disposition home health service (06) | DRG 683 ==
LOC: ERS 20:33 → NEURO 22:04 → OBSVTOIN 12-19 13:14
PROVIDERS: ADMIT Family Medicine; ATTEND Family Medicine
DX: N17.9 Acute kidney failure, unspecified (principal); G45.9 Transient cerebral ischemic attack, unspecified; N39.0 Urinary tract infection, site not specified; E87.1 Hypo-osmolality and hyponatremia; E87.2 Acidosis; Z20.822 Contact with and (suspected) exposure to COVID-19; E11.51 Type 2 diabetes mellitus with diabetic peripheral angiopathy without gangrene; I25.10 Atherosclerotic heart disease of native coronary artery without angina pectoris; E78.5 Hyperlipidemia, unspecified; E86.9 Volume depletion, unspecified; B96.1 Klebsiella pneumoniae [K. pneumoniae] as the cause of diseases classified elsewhere; F15.10 Other stimulant abuse, uncomplicated; D50.9 Iron deficiency anemia, unspecified; F17.210 Nicotine dependence, cigarettes, uncomplicated; E87.6 Hypokalemia; I10 Essential (primary) hypertension; E86.0 Dehydration; T50.2X5A Adverse effect of carbonic-anhydrase inhibitors, benzothiadiazides and other diuretics, initial encounter; I44.0 Atrioventricular block, first degree; Z86.73 Personal history of transient ischemic attack (TIA), and cerebral infarction without residual deficits; Z98.890 Other specified postprocedural states; Z88.2 Allergy status to sulfonamides; Z88.8 Allergy status to other drugs, medicaments and biological substances; Z91.041 Radiographic dye allergy status; Z79.899 Other long term (current) drug therapy; Z79.84 Long term (current) use of oral hypoglycemic drugs
CPT/HCPCS: 36415; 36416; 51701; 70450; 70551; 71045; 76770; 80048; 80053; 80061; 80306; 80307; 81003; 81015; 82550; 82570; 82728; 83036; 83540; 83550; 83735; 84300; 84443; 84484; 85025; 85027; 85610; 85730; 87040; 87077; 87086; 87186; 93005; 93010; 93306; 93880; 96365; 96372; 96375; 96376; G0378; J0692; J0696; J1650; J1815; J3475; J3480; J3490; U0003; U0005